=== PATIENT | female | born 1995 | race Caucasian/White ===

== ENCOUNTER 2017-09-30 09:14 | Day surgery (SDC) | payer OTHER ==
[~2017-09-30 09:14] MED LIST: CEFAZOLIN 1 GM/50 ML (PMX) 50 ML IVPB; SOD CHLORIDE 0.9% 1,000 ML IV
[2017-09-30] MEDS ORDERED: FENTAnyl 50 MCG/ML VIAL (10:34)
[2017-09-30] MEDS ORDERED: CEFAZOLIN 1 GM INJ (11:00)
[2017-09-30] MEDS ORDERED: PROPOFOL 20 ML (11:00)
[2017-09-30] MEDS ORDERED: LIDOCAINE 100 MG SYRINGE (11:00)
[2017-09-30] MEDS ORDERED: MEPERIDINE 25 MG INJ IV (11:00)
[2017-09-30] MEDS ORDERED: SUGAMMADEX SODIUM 200 MG/2 ML VIAL IV (11:00)
[2017-09-30] MEDS ORDERED: FENTAnyl 50 MCG/ML VIAL IV ×3 (11:00)
[2017-09-30] MEDS ORDERED: LEVALBUTEROL (NEB) 0.63 MG/3 ML AMP HHN (11:00)
[2017-09-30] MEDS ORDERED: ROCURONIUM 50 MG INJ (11:00)
[2017-09-30] MEDS ORDERED: ONDANSETRON 4 MG INJ IV (11:00)
[2017-09-30] MEDS ORDERED: SUCCINYLCHOLINE CHLORIDE 100 MG/5 ML SYG IV (11:00)
[2017-09-30] MEDS ORDERED: METOCLOPRAMIDE 10 MG INJ IV (11:00)
[2017-09-30] MEDS ORDERED: HYDROmorphONE 1 MG/5 ML IV SYRINGE IV ×2 (11:00)
[2017-09-30] MEDS ORDERED: DIPHENHYDRAMINE 50 MG INJ IV (11:00)
[2017-09-30] MEDS: BUPIVACAINE 0.5%/EPI (SDV) 30 ML INJ (11:10)
[2017-09-30] MEDS: HYDROmorphONE 1 MG/5 ML IV SYRINGE IV (11:50)
[2017-09-30] MEDS ORDERED: HYDROCODONE/APAP (7.5/325) TAB PO (12:00)
== END 2017-09-30 13:25 | disposition home or self-care (01) ==
LOC: SDS 09:14
DX: D24.2 Benign neoplasm of left breast (principal)
CPT/HCPCS: 19120; 88307

== ENCOUNTER 2017-11-11 23:09 | Emergency (ER) | payer OTHER | END 2017-11-12 00:58 | disposition home or self-care (01) | LOC: FTE 23:09 | DX: Z48.01 Encounter for change or removal of surgical wound dressing (principal) | CPT/HCPCS: 99283; Z7502 ==

== ENCOUNTER 2017-12-07 13:05 | Emergency (ER) | payer OTHER | END 2017-12-07 14:29 | disposition home or self-care (01) | LOC: FTE 13:05 | DX: N89.8 Other specified noninflammatory disorders of vagina (principal); R10.2 Pelvic and perineal pain; J45.909 Unspecified asthma, uncomplicated | CPT/HCPCS: 87086; 87591; 99283 ==

== ENCOUNTER 2018-05-20 18:53 | Emergency (ER) | payer OTHER ==
[2018-05-20 23:33] LABS: ADD UMIC YES; UR ASCORBIC ACID NEGATIVE (NEGATIVE); UR BILIRUBIN (Dip) NEGATIVE (NEGATIVE); UR BLOOD (Dip) 2+ mg/dL (NEGATIVE); UR CLARITY CLEAR (CLEAR); UR COLOR YELLOW (YELLOW); UR GLUCOSE (Dip) NEGATIVE (NEGATIVE); UR KETONES (Dip) NEGATIVE (NEGATIVE); UR LEUKOCYTE ESTERASE (Dip) NEGATIVE Leu/ul (NEGATIVE); UR NITRITE (Dip) NEGATIVE (NEGATIVE); UR RBC 1 /HPF (0-5); UR SPECIFIC GRAVITY (Dip) 1.021 (1.003-1.030); UR TOTAL PROTEIN (Dip) NEGATIVE (NEGATIVE); UR UROBILINOGEN (Dip) NEGATIVE (NEGATIVE); UR WBC 0 /HPF (0-5)
== END 2018-05-21 01:45 | disposition home or self-care (01) ==
LOC: FTE 05-21 01:45
DX: R10.2 Pelvic and perineal pain (principal); J45.909 Unspecified asthma, uncomplicated
CPT/HCPCS: 81001; 81025; 87210; 99284